=== PATIENT | female | born 1940 | race Hispanic/Latino ===

== ENCOUNTER → 2016-08-05 | Outpatient (CLI) | payer OTHER | END | disposition home or self-care (01) | LOC: YCFC.O 14:40 | PROVIDERS: ATTEND Nurse Practitioner Family | DX: I10 Essential (primary) hypertension (principal); E11.9 Type 2 diabetes mellitus without complications; E78.2 Mixed hyperlipidemia ==

== ENCOUNTER 2016-09-10 16:56 | Emergency (ER) | payer MEDICARE, OTHER ==
--- NOTE | 2016-09-10 18:39 | RAD ---
EXAM: Elbow,Left 3 Views CLINICAL INDICATION: 76-year-old female with elbow pain status post fall. TECHNIQUE: Two views of the LEFT elbow were obtained in AP, and lateral projections. COMPARISON: None. FINDINGS: There is no fracture or dislocation. The joint spaces are preserved. No soft tissue abnormalities are seen. No joint effusion. IMPRESSION: No acute radiographic abnormality. Electronically signed by: Maria Luisa lFannery MD 09/10/2016 6:38 PM CDT
--- NOTE | 2016-09-10 18:40 | RAD ---
EXAM: Hip,Left 2 Views CLINICAL INDICATION: 76-year-old female with hip pain status post fall. COMPARISON: None. TECHNIQUE: Two views of the LEFT hip were obtained in AP and oblique projection. FINDINGS: There is no fracture or dislocation. The joint spaces are preserved. No soft tissue abnormalities are seen. Degenerative changes of the lumbar spine with lumbar spine fusion hardware present. The bones are diffusely demineralized limiting assessment for subtle fracture. IMPRESSION: No acute radiographic abnormality. Electronically signed by: Maria Luisa Flannery MD 09/10/2016 6:39 PM CDT
--- NOTE | 2016-09-10 18:42 | RAD ---
EXAM: Shoulder,Left 2 or More Views CLINICAL INDICATION: 76-year-old female with LEFT shoulder pain status post fall. TECHNIQUE: Three views LEFT shoulder were obtained in AP, internal, external rotation and transcapular projections. COMPARISON: None. FINDINGS: Limited two views of the LEFT shoulder reveal no fracture. Dislocation cannot be completely excluded. If there is clinical concern for dislocation, transscapular projection is recommended. The joint spaces are preserved. No soft tissue abnormalities are seen. Degenerative change at the acromioclavicular joint. IMPRESSION: No acute radiographic abnormality. Electronically signed by: Maria Luisa Flannery MD 09/10/2016 6:41 PM CDT
[2016-09-10] MEDS ORDERED: KETOROLAC TROMETHAMINE INJ 30 MG/ML VIAL IM ONE (19:44)
[2016-09-10 19:54] VITALS: TEMP 98.1
--- NOTE | 2016-09-10 20:52 | ED.PDOC ---
History of Present Illness - General Chief Complaint: Trauma Stated Complaint: left shoulder, left knee, and left elbow pain Time Seen by Provider: 09/10/16 18:34 Source: patient, RN notes reviewed, Vital Signs reviewed, family - Daughter Exam Limitations: no limitations - History of Present Illness Initial Comments: Patient is a 76 y/o female who fell at about 1430 today. She was getting up from the bed and her left knee gave out on her. She fell on her left side. She did not hit her head and she had no LOC. Patient has fallen twice because of her knee giving out on her. She has had problems with left knee pain for awhile. Her entire left side is sore from falling, primarily her knee. Timing/Duration: 4-6 hours Severity: moderate Improving Factors: immobilization Worsening Factors: movement Associated Symptoms: denies symptoms Allergies/Adverse Reactions: Allergies Acetaminophen [From Lortab] Allergy (Verified 09/10/16 19:38) Other Hallucinations Gemfibrozil Allergy (Verified 09/10/16 19:38) Unknown Hydrocodone [From Lortab] Allergy (Verified 09/10/16 19:38) Other Hallucinations Metronidazole Allergy (Verified 09/10/16 19:38) Unknown Sulfa Antibiotics Allergy (Verified 09/10/16 19:39) Morphine Adverse Reaction (Verified 09/10/16 19:38) Other Makes her "crazy", upset stomach Niacin Adverse Reaction (Verified 09/10/16 19:38) Other "due to liver issue" Home Medications: Ambulatory Orders Naproxen [Naprosyn] 500 mg PO BID #30 tab 09/10/16 tiZANidine [Zanaflex] 4 mg PO TID PRN #30 tab 09/10/16 Review of Systems - Review of Systems Constitutional: States: no symptoms reported EENTM: States: no symptoms reported Respiratory: States: no symptoms reported Cardiology: States: no symptoms reported Gastrointestinal/Abdominal: States: constipation, diarrhea Genitourinary: States: no symptoms reported Musculoskeletal: States: back pain, joint pain, joint swelling, muscle pain, neck pain Skin: States: no symptoms reported Neurological: States: tingling - In her toes when they get cold. Endocrine: States: no symptoms reported Hematologic/Lymphatic: States: no symptoms reported Past Medical History (General) - Patient Medical History Hx Stroke: No Hx Congestive Heart Failure: No Hx Hypertension: Yes Hx Diabetes: Yes - Neuropathy Hx Gastroesophageal Reflux: Yes - Vaccination History Hx Influenza Vaccination: Yes - 2016 Hx Pneumococcal Vaccination: No - Social History Hx Tobacco Use: No Family Medical History - Family History Mother Family History: No Known Living Status: Physical Exam - Physical Exam General Appearance: Alert, Obvious distress - Mild Eye Exam: bilateral normal Ears, Nose, Throat: hearing grossly normal, normal ENT inspection Neck: non-tender, full range of motion, supple Extremity: normal range of motion, other - Left shoulder, knee and hip joint pain with palpation. No laxity in knee. Neurologic: alert, normal mood/affect, oriented x 3 Skin Exam: normal color Progress - Progress Progress: 09/10/16 21:44 Patient did well and had good pain relief with Toradol and Norflex. 09/10/16 21:45 - Results/Orders Results/Orders: 09/10/16 09/10/16 09/10/16 17:30 19:00 20:39 Temperature 98.1 F Pulse Rate [ 88 86 86 Left Radial] Respiratory 18 18 18 Rate Blood Pressure 160/81 154/109 182/95 [Left Arm] O2 Sat by Pulse 97 97 96 Oximetry 09/11/16 20:58 Losartan Potassium [Cozaar] 50 mg PO ONCE ONE 09/10/16 21:44 X-rays of left shoulder, elbow, hip and knee showed no acute process. - EKG/XRAY/CT Xray Comments: See Results Departure - Departure Clinical Impression: Fall at home Qualifiers: Encounter type: initial encounter Qualifier Code: (W19.XXXA) Unspecified fall, initial encounter Left shoulder strain Qualifiers: Encounter type: initial encounter Qualifier Code: (S46.912A) Strain of unspecified muscle, fascia and tendon at shoulder and upper arm level, left arm , initial encounter Strain of left hip Qualifiers: Encounter type: initial encounter Qualifier Code: (S76.012A) Strain of muscle, fascia and tendon of left hip, initial encounter Strain of left knee Qualifiers: Encounter type: initial encounter Qualifier Code: (S86.912A) Strain of unspecified muscle(s) and tendon(s) at lower leg level, left leg, initial encounter Time of Disposition: 21:45 Disposition: Discharge to Home or Self Care Condition: Fair Departure Forms: ED Discharge - Pt. Copy, Patient Portal Self Enrollment Diet: resume usual diet Activity: ambulate only with walker Referrals: Judi Coffey NP [Primary Care Provider] - 1-2 Weeks Prescriptions: Naproxen [Naprosyn] 500 mg PO BID #30 tab tiZANidine [Zanaflex] 4 mg PO TID PRN #30 tab PRN Reason: Muscle Spasms Home Medications: Ambulatory Orders Naproxen [Naprosyn] 500 mg PO BID #30 tab 09/10/16 tiZANidine [Zanaflex] 4 mg PO TID PRN #30 tab 09/10/16 Additional Instructions: Follow up with ED if symptoms worsen or PCP if symptoms continue.
[2016-09-10] MEDS ORDERED: ORPHENADRINE CITRATE 30 MG/ML AMP IM ONE (20:56)
--- NOTE | 2016-09-10 21:26 | RAD ---
EXAM: Knee,Left 2 or More Views CLINICAL INDICATION: 76-year-old female with knee pain status post fall. TECHNIQUE: Three views LEFT knee were obtained in AP, lateral and patellar projections COMPARISON: None. FINDINGS: There is no fracture or dislocation. The joint spaces are preserved. No soft tissue abnormalities are seen. Degenerative changes noted with sharpening of the tibial spines and tricompartmental osteophytes. Faint increased density of the femoral tibial joint space suggesting chondrocalcinosis of uncertain etiology. IMPRESSION: No acute radiographic abnormality. Electronically signed by: Maria Luisa Flannery MD 09/10/2016 9:25 PM CDT
[2016-09-10 22:11] VITALS: BP 153/100; O2SAT 94
[2016-09-11] MEDS ORDERED: LOSARTAN POTASSIUM 25 MG TAB PO ONE (20:58)
== END 2016-09-10 22:00 | disposition home or self-care (01) ==
LOC: ER 16:56
DX: S86.912A Strain of unspecified muscle(s) and tendon(s) at lower leg level, left leg, initial encounter (principal); S46.912A Strain of unspecified muscle, fascia and tendon at shoulder and upper arm level, left arm, initial encounter; S76.012A Strain of muscle, fascia and tendon of left hip, initial encounter; E11.40 Type 2 diabetes mellitus with diabetic neuropathy, unspecified; K21.9 Gastro-esophageal reflux disease without esophagitis; I10 Essential (primary) hypertension; Z88.6 Allergy status to analgesic agent; Z88.2 Allergy status to sulfonamides; Z88.8 Allergy status to other drugs, medicaments and biological substances; W06.XXXA Fall from bed, initial encounter

== ENCOUNTER 2016-09-18 21:30 | Inpatient (IN) | payer OTHER, MEDICARE ==
[2016-09-18] MEDS ORDERED: fentaNYL CITRATE INJ 50 MCG/ML AMP IV ONE (22:17)
--- NOTE | 2016-09-18 22:22 | ED.PDOC ---
History of Present Illness - General Chief Complaint: Problem Stated Complaint: back pain, hematuria Time Seen by Provider: 09/18/16 22:11 Source: patient, RN notes reviewed, Vital Signs reviewed, family Exam Limitations: no limitations - History of Present Illness Initial Comments: Patient noticed blood in her urine starting about 3 pm today that has progressively worsened. She is having abd pain, back pain and chest pain. No nausea, +SOB. She is also having urinary frequency. Timing/Duration: this afternoon Quality: moderate, cramping, dull Onset Location: suprapubic, generalized flank Radiation: none Activites at Onset: none Prior abdominal problems: recent trauma - Fell ~2 weeks ago. Sexual intercourse history: not active Improving Factors: nothing Worsening Factors: nothing Associated Symptoms: abdominal pain, lower back pain, urinary frequency Allergies/Adverse Reactions: Allergies Acetaminophen [From Lortab] Allergy (Verified 09/10/16 19:38) Other Hallucinations Gemfibrozil Allergy (Verified 09/10/16 19:38) Unknown Hydrocodone [From Lortab] Allergy (Verified 09/10/16 19:38) Other Hallucinations Metronidazole Allergy (Verified 09/10/16 19:38) Unknown Sulfa Antibiotics Allergy (Verified 09/10/16 19:39) Morphine Adverse Reaction (Verified 09/10/16 19:38) Other Makes her "crazy", upset stomach Niacin Adverse Reaction (Verified 09/10/16 19:38) Other "due to liver issue" Home Medications: Ambulatory Orders Naproxen [Naprosyn] 500 mg PO BID #30 tab 09/10/16 tiZANidine [Zanaflex] 4 mg PO TID PRN #30 tab 09/10/16 Review of Systems - Review of Systems Constitutional: States: no symptoms reported. Denies: chills, fever, malaise EENTM: States: no symptoms reported Respiratory: States: short of breath. Denies: cough, orthopnea, stridor Cardiology: States: chest pain. Denies: edema, palpitations, syncope Gastrointestinal/Abdominal: States: see HPI, abdominal pain Genitourinary: States: frequency, hematuria Musculoskeletal: States: back pain Skin: States: no symptoms reported Neurological: States: no symptoms reported Past Medical History (General) - Patient Medical History Hx Seizures: No Hx Stroke: No Hx Dementia: No Hx Asthma: No Hx of COPD: No Hx Cardiac Disorders: No Hx Congestive Heart Failure: No Hx Pacemaker: No Hx Hypertension: No Hx Thyroid Disease: No Hx Diabetes: No Hx Gastroesophageal Reflux: No Hx Renal Disease: No Hx Cancer: No Hx Hepatitis C: No Surgical History: no surgical history - Vaccination History Hx Tetanus, Diphtheria Vaccination: No Hx Influenza Vaccination: No Hx Pneumococcal Vaccination: No - Social History Hx Tobacco Use: No Hx Alcohol Use: No Hx Substance Use: No Hx Substance Use Treatment: No Hx Depression: No - Female History Patient is a Female of Child Bearing Age (10 -59 yrs old): No Family Medical History - Family History Mother Family History: No Known Living Status: Physical Exam - Physical Exam General Appearance: Alert, Comfortable, No apparent distress, Well Developed, Well Groomed, Well Hydrated, Well Nourished Neck: non-tender, full range of motion, supple, normal inspection Cardiovascular/Respiratory: regular rate, rhythm, no M/R/G, no JVD, normal breath sounds, no respiratory distress, other - Anterior chest wall is tender over L costochondral cartilage Gastrointestinal/Abdominal: normal bowel sounds, guarding, tenderness - generalized Back Exam: no CVA tenderness, no vertebral tenderness Extremity: normal range of motion, non-tender, normal inspection, no pedal edema Neurologic: no motor/sensory deficits, alert, normal mood/affect, oriented x 3 Skin Exam: normal color, warm/dry Comments: Vital Signs - 24 hr 09/18/16 09/18/16 21:30 23:55 Temperature 99.1 F Pulse Rate [ 84 84 left arm] Respiratory 18 18 Rate Blood Pressure 176/82 171/83 [Left Arm] O2 Sat by Pulse 95 95 Oximetry Progress - Progress Progress: 09/19/16 00:34 Discussed results with patient and family. Most likely is a severe UTI causing her gross hematuria. She lives alone and is having a hard time getting up and out of bed. Will discuss admission for IV antibiotics with Hospitalist. - Results/Orders Results/Orders: Laboratory Tests 09/18/16 09/18/16 09/18/16 22:00 22:04 22:13 WBC 9.5 RBC 4.53 Hgb 13.8 Hct 40.8 MCV 90.1 MCH 30.5 MCHC 33.9 RDW 13.1 Plt Count 196 MPV 9.4 Absolute Neuts (auto) 6.60 Absolute Lymphs (auto) 1.80 Absolute Monos (auto) 1.00 H Absolute Eos (auto) 0.10 Absolute Basos (auto) 0.00 Neutrophils % 69.5 Lymphocytes % 18.5 L Monocytes % 11.0 H Eosinophils % 0.8 L Basophils % 0.2 Sodium 126 L Potassium 4.4 Chloride 90 L Carbon Dioxide 26 Anion Gap 14.4 BUN 14 Creatinine < 0.40 L BUN/Creatinine Ratio 35.0 H Random Glucose 176 H Serum Osmolality 258.1 L Calcium 9.8 Total Bilirubin 0.9 AST 32 ALT 23 Alkaline Phosphatase 142 H Creatine Kinase 174 H CK-MB (CK-2) 5.0 H* CK-MB (CK-2) % 2.87 Troponin I < 0.02 Serum Total Protein 7.3 Albumin 4.1 Globulin 3.2 Albumin/Globulin Ratio 1.3 Urine Color Red H Urine Appearance Cloudy Urine pH 6.5 Ur Specific [place] 1.010 Urine Protein >=300 H Urine Glucose (UA) 100 H Urine Ketones 15 H Urine Blood Large H Urine Nitrite Positive H Urine Bilirubin Large Urine Urobilinogen 2.0 H Ur Leukocyte Esterase Large H Urine RBC Tntc H Urine WBC Obscured by rbc's H Ur Epithelial Cells Obscured by rbc's Urine Bacteria Obscured by rbc's H - EKG/XRAY/CT EKG: Sinus, RBBB, no ST T wave changes Comments: rate 79 bpm XRAY: Thoracic spine: no acute process - No acute disease CT Ordered: Yes - Abd/Pelvis: fluid/blood in bladder, diverticulosis, w/o normal Departure - Departure Clinical Impression: Urinary tract infection Qualifiers: Urinary tract infection type: acute cystitis Hematuria presence: with hematuria Qualifier Code: (N30.01) Acute cystitis with hematuria Time of Disposition: 00:42 Disposition: Admit Patient Departure Forms: ED Discharge - Pt. Copy, Patient Portal Self Enrollment Home Medications: Ambulatory Orders Naproxen [Naprosyn] 500 mg PO BID #30 tab 09/10/16 tiZANidine [Zanaflex] 4 mg PO TID PRN #30 tab 09/10/16 Decision To Admit - Decistion To Admit Decision to Admit Reason: Admit from ER
[2016-09-18] MEDS ORDERED: SODIUM CHLORIDE 0.9% 1000ML 1,000 ML IVS ONE (22:26)
--- NOTE | 2016-09-19 00:18 | CT ---
EXAM: CT abdomen and pelvis with contrast. INDICATION: Abdominal pain, acute. TECHNIQUE: Contiguous axial CT images of the abdomen and pelvis. Intravenous contrast: Present. Oral contrast: Absent. DLP 766 mGy-cm. COMPARISON: None. FINDINGS: Lower chest: Partially imaged. Lung bases: Unremarkable. Cardiac apex: Unremarkable. Solid abdominal viscera: Liver: Unremarkable. Gallbladder: Cholecystectomy Pancreas: Unremarkable. Spleen: Unremarkable. Adrenal glands: Unremarkable. Right kidney: No hydronephrosis. Left kidney: No hydronephrosis. Urinary bladder: There is a fluid fluid level within the urinary bladder, likely containing blood products Abdominal aorta: Atherosclerotic auscultation without evidence of aneurysm Peritoneal: Free fluid: None. Free air: None. Other: No pathologic sized lymph nodes in the upper abdomen. There is a fat-containing umbilical hernia Bowel: Stomach: Unremarkable. Small bowel: Unremarkable. Appendix: Not uniquely identified, however there are no inflammatory changes within the right lower quadrant Colon: Diverticulosis without evidence of diverticulitis Rectum: Unremarkable. Uterus: Hysterectomy Bones: There are changes of posterior fusion at L3-L4. There is multilevel spondylosis. There are changes of a laminectomy at L4-L5. IMPRESSION: Fluid-fluid level within the urinary bladder, likely containing blood products. Diverticulosis without evidence of diverticulitis. Electronically signed by: Patrice Mccain MD 09/19/2016 12:17 AM CDT
--- NOTE | 2016-09-19 00:19 | RAD ---
EXAM: Two view chest. INDICATION: Chest pain. COMPARISON: Chest x-ray: None. FINDINGS: Cardiac silhouette: Unremarkable. Jeanna: Unremarkable. Lobar consolidation: None. Pleural effusion: None. Pneumothorax: None. Other: None. Bones: There is mild thoracic spondylosis Other: None. IMPRESSION: 1. No acute cardiopulmonary process. Electronically signed by: Patrice Mccain MD 09/19/2016 12:18 AM CDT
--- NOTE | 2016-09-19 00:20 | RAD ---
EXAM: Two view(s) of the thoracic spine. INDICATION: Pain, thoracic spine. COMPARISON: None. FINDINGS: Alignment: Intact. Fracture: No acute compression fracture or subluxation. Paravertebral soft tissues: No large hematoma. IMPRESSION: 1. No acute compression fracture. Electronically signed by: Patrice Mccain MD 09/19/2016 12:19 AM CDT
[2016-09-19] MEDS ORDERED: CIPROFLOXACIN 500 MG TAB (ER DISPENSE) PO ONE (00:29)
[2016-09-19] MEDS ORDERED: CIPROFLOXACIN 500 MG TAB PO ONE (00:29)
[2016-09-19] MEDS ORDERED: levoFLOXacin 500MG IV 500 MG in PREMIX BAG 1 BAG IVPB ONE (00:33)
[2016-09-19] MEDS ORDERED: levoFLOXacin 500MG IV 100 ML IVPB ONE ×2 (00:37→18:42)
--- NOTE | 2016-09-19 01:12 | HP ---
SUPERVISING PHYSICIAN: Benedicto Martinez M.D. CHIEF COMPLAINT: Back pain with hematuria status post same level fall. HISTORY OF PRESENT ILLNESS: Ms. Hayward is a 76 year-old female patient that presented to the Emergency Department after she noticed blood in her urine that started around 1500 on the previous day on 09/18 that had progressively worsened throughout the day. She had been having some abdominal pain, back pain and chest pains, but no nausea or shortness of breath. She was noting that she was having increased urinary frequency. She does have a history of recent fall on 09/10 and was evaluated in the Emergency Department, and found to have no acute injuries. She fell in the last previous day and was again reevaluated and found to have no acute fractures. She did have gross hematuria on exam and the laboratory studies showed that her urine had a large amount of leukocyte esterase, positive nitrites, large amount of blood, greater than 300 protein and 100 glucose with 15 ketones with microscopic showing too numerous to count RBCs, and all other indices obscured by the number of RBCs present. Urine culture was sent to the Laboratory for further analysis. All other laboratory studies completed showed that she had a normal CBC with white count of 9.5, hemoglobin 13.8, hematocrit 40.8. Coagulation studies showed to be within normal limits. Chemistries did show she had a low sodium at 126 with potassium 4.0, BUN 14, creatinine less than 0.4. Liver functions showed normal limits on everything except alkaline phosphatase was elevated at 142. She did have elevated CPK of 174 but troponin was less than 0.02. She was having a significant amount of pain at home. She does live with her niece who reports that she was unable to assist the patient to the bathroom who was having to go frequently secondary to underlying urinary tract infection, therefore given the gross hematuria and pain in her back and lower extremities, the patient is going to be admitted to the Medical/Surgical floor for continued treatment and evaluation for the gross hematuria and underlying urinary tract infection. She was admitted to the Medical/Surgical floor in stable condition. PAST MEDICAL HISTORY: 1. Hypertension. 2. Diabetes mellitus type 2. 3. Hyperlipidemia. 4. Chronic back pain. 5. Gastroesophageal reflux disease. 6. General anxiety disorder without any mention of depression. PAST SURGICAL HISTORY: 1. Stomach surgery for stomach tumor. 2. Cholecystectomy. 3. Appendectomy. 4. Hysterectomy. 5. Multiple lumbar fusion surgeries. HOME MEDICATIONS: 1. Januvia 50 mg daily. 2. Naprosyn 500 mg twice daily. 3. Losartan 50 mg twice daily. 4. Zanaflex 4 mg 3 times a day. 5. Xanax 0.25 mg daily p.r.n. 6. Metformin 500 mg twice daily. 7. Hydrochlorothiazide 12.5 mg twice daily. 8. Omeprazole 20 mg daily. 9. Ciclodan 8% topical at bedtime. 10. Tramadol 50 mg p.r.n. for pain. ALLERGIES: LORTAB, GEMFIBROZIL, METRONIDAZOLE, SULFA ANTIBIOTICS, MORPHINE AND NIACIN. FAMILY HISTORY: The patient is an orphan. She has no records of previous family members. SOCIAL HISTORY: The patient just recently moved from [place] to [place] in April to live with her niece. She is . She is disabled. 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 She had never smoked nor has she ever drank alcohol or used illicit drugs. PRIMARY CARE PROVIDER: [facility]. REVIEW OF SYSTEMS: CONSTITUTIONAL: Denies any chills, fevers or malaise. HEENT : Denies any symptoms. RESPIRATORY: Does have some shortness of breath off and on. Denies any cough, orthopnea or stridors. CARDIOVASCULAR: Notes that she has had some chest wall discomfort but denies any edema, palpitations or syncopal episodes. GASTROINTESTINAL: As noted in the History of Present Illness , abdominal pain with gross hematuria. GENITOURINARY: Increased frequency, polyuria and gross hematuria as noted in the History of Present Illness. MUSCULOSKELETAL: Chronic back pain, pain to her left hip radiating down into her leg after sustaining multiple same level falls within the last week. NEUROLOGIC: Denies any headache, syncopal episodes, dizziness or other neurological deficits. She does walk with a cane. PHYSICAL EXAMINATION: VITAL SIGNS: On admission to the Medical/Surgical floor shows temperature 97.5 , pulse 87, blood pressure 170/95, respirations 22, satting 96% on room air. Admission weight was 72.9 kg. GENERAL: The patient appears well nourished, well hydrated, in some mild distress from pain. HEENT: Tympanic membranes are clear bilaterally. Oropharynx is pink and moist without any lesions. NECK: No jugular venous distention. Non-tender with full range of motion, supple with normal inspection. CHEST: Lungs are clear to auscultation bilaterally without any rhonchi, wheezing or rales. There is some tenderness noted over the anterior chest wall with palpation over the left costochondral cartilage. CARDIOVASCULAR: Heart is regular rate and rhythm without appreciable murmurs, gallops, or rubs. ABDOMEN: Generalized tenderness more so towards the suprapubic area. No rebound tenderness. No guarding. Bowel sounds are positive. BACK: There is no CVA tenderness. No vertebral tenderness. No obvious trauma. EXTREMITIES: There is no edema, clubbing or cyanosis. She does have some discomfort with left leg when lying flat, especially with straight leg lifts which elicit extreme pain into her lower back and hip radiating down into the lateral aspect of her leg down to the calf. PELVIS: Stable on exam with no obvious deformities or bruising or other trauma. INTEGUMENT: Skin is warm and dry, normal color with no obvious lesions or other traumatic injuries. NEUROLOGIC: She is alert and oriented times three. Cranial nerves II-XII are grossly intact. Facial features are symmetrical. Extraocular movements are within normal limits. There is no nystagmus. There are no obvious motor sensory deficits. LABORATORY: White count on admission showed white count 9.5, hemoglobin 13.8, hematocrit 40.8, platelet count 196,000. Differential showed to be within normal limits. Coagulation studies on admission showed normal PT and PTT. Chemistries did show low sodium at 126, potassium was normal at 4.4, chloride low at 90, BUN 14, creatinine less than 0.4, glucose 176, calcium 9.8. Liver functions showed to be within normal limits. Slightly elevated alkaline phosphatase at 142. CPK was elevated at 174, troponin was less than 0.02. Urinalysis showed red and cloudy with dipstick showing greater than 300 protein , 100 glucose, 15 ketones, moderate amount of blood, positive nitrites with large leukocyte esterase. Microscopic showed too numerous to count RBCs obscuring all other indices. MICROBIOLOGY: Urine culture is pending. RADIOLOGY: Abdominal/pelvic CT in the Emergency Department prior to admission showed a fluid level within the urinary bladder likely containing blood products , diverticulosis without any evidence of diverticulitis. There is also note of changes in the posterior fusion of L3 to L4 with multilevel spondylosis, also changes of laminectomy at L4 through L5. Chest x-ray in the Emergency Department prior to admission per radiology interpretation shows no acute cardiopulmonary processes. Thoracic spine x-ray per radiology interpretation showed no acute compression fractures. At time of admission to the Medical/ Surgical floor, pelvis CT and lumbar CT were pending. ASSESSMENT: 1. Gross hematuria with possible underlying urinary tract infection with the patient sustaining a same level fall within the last week. 2. Severe low back pain and hip pain possibly sciatica in nature secondary to possible radiculopathy of the lower lumbar spine with a lumbar spine CT pending at time of admission. 3. Moderate hyponatremia likely secondary to some medication regimen to include Hydrochlorothiazide as well as possibly resulting in the patient having some falls within the last week. 4. Diabetes type 2 on oral therapy. 5. Hypertension. 6. Hyperlipidemia. 7. History of anxiety. 8. Gastroesophageal reflux disease. PLAN: The patient will be admitted to the Medical/Surgical floor for continued treatment and evaluation. Will plan to get a CT of the pelvis and lumbar spine to further rule out any acute fractures as the patient is noted to be osteopenic on previous radiographic studies. Will plan to provide her with some IV therapy to help correct the sodium slowly. Will go ahead and place a two-way Sharp for bladder irrigation and closely monitor the hematuria. Will await urinary cultures to further rule out underlying urinary tract infection and start on Levaquin for antibiotic coverage until final culture results are out. Will provide her with pain control with Fentanyl/Duragesic patch and Fentanyl IV if needed along with muscle relaxants to include her Zanaflex once the medications have been updated in the computer. Will plan to get a social consultation as the patient has had multiple falls in the past and has just recently moved in with a niece to ensure the patient has optimal environment to go home and to be safe once discharged. Will anticipate length of stay to be 2 to 3 days. Until then, will continue to monitor the patient closely and treat appropriately. #[id number] [facility]
[2016-09-19] MEDS ORDERED: ACETAMINOPHEN 325 MG TAB PO PRN (01:17)
[2016-09-19] MEDS ORDERED: SODIUM CHLORIDE 0.9% (FLUSH) 10 ML SYG IV PRN (01:17)
[2016-09-19] MEDS ORDERED: IV SET AND CAP CHANGE INJ INJ SCH (01:30)
[2016-09-19] MEDS ORDERED: DEXTROSE 50% 25 GM/50 ML SYG IV PRN (01:36)
[2016-09-19] MEDS ORDERED: GLUCAGON INJ 1 MG VIAL SUBCU PRN (01:36)
[2016-09-19] MEDS: KCL 20 MEQ/NS 1,000 ML IVS PRN ×2 (03:00→16:22)
[2016-09-19] MEDS ORDERED: IBUPROFEN 400 MG TAB ONE (04:29)
[2016-09-19] MEDS ORDERED: IBUPROFEN 200 MG TAB ONE (04:29)
[2016-09-19] MEDS: IBUPROFEN 200 MG TAB PO PRN (04:57)
[2016-09-19] MEDS: INSULIN LISPRO 100 UNITS/ML PEN SUBCU SCH ×4 (07:58→21:40)
[2016-09-19] MEDS ORDERED: KETOROLAC TROMETHAMINE INJ 30 MG/ML VIAL IV ONE (08:30)
[2016-09-19] MEDS ORDERED: METHOCARBAMOL 750 MG TAB PO ONE (08:32)
[2016-09-19] MEDS ORDERED: fentaNYL CITRATE INJ 50 MCG/ML AMP IV ONE (08:33)
[2016-09-19] MEDS ORDERED: fentaNYL PATCH 25 MCG/HR 1 EA PATCH TD SCH (09:00)
--- NOTE | 2016-09-19 10:23 | CT ---
EXAM DESCRIPTION: Pelvis CLINICAL HISTORY: 76 years Female s/p same level fall 09/10 with uncontrollable pain COMPARISON: None TECHNIQUE: Contiguous axial images of the pelvis were obtained followed by reconstruction images. FINDINGS: Filling defect within the right side of the bladder could represent blood products versus underlying mass. Correlation with a sonogram is recommended for further evaluation. Patient is status post lumbar surgery. There are degenerative changes of the lumbar spine and sacroiliac joints. There is atherosclerosis. There is no discrete acute bony fracture. There is no free fluid in the pelvis. There is no evidence of bowel obstruction. Patient is status post hysterectomy. IMPRESSION: No acute fracture. Filling defect within the right side of the bladder could represent blood products versus possible underlying mass. Correlation with a bladder sonogram is recommended for further evaluation. Electronically signed by: Nawaf Chew MD 09/19/2016 10:22 AM CDT
--- NOTE | 2016-09-19 10:29 | CT ---
EXAM DESCRIPTION: Lumbar Spine CLINICAL HISTORY: s/p same level fall 09/10 with uncontrollable pain. Prior lumbar fusion with hardware. COMPARISON: Radiographs of the hip thoracic spine and chest. CT scans of the abdomen and pelvis soft tissues and CT scan of the pelvic bone. TECHNIQUE: Spiral, axial 2.5 mm scans through the lumbar spine without contrast. Coronal and sagittal 2.0 mm reconstructions. FINDINGS: L5-S1: Prior posterior decompression bilaterally. Mild canal narrowing. Facet joints are partially fused. Partial ossification of the disc space with minimal posterior bulge. Transpedicular screws have been removed bilaterally at L4 and L5. Bilateral gas formation in the SI joints with periarticular sclerosis and marginal spurs. Moderate right foraminal narrowing. No spondylolisthesis. No L5 vertebral body compression deformity. L4-5: Partial ossification in the disc space but no significant posterior bulge. Posterior decompression and partial fusion of the facet joints. Mild narrowing of the bilateral foramina right more than left. Posterior decompression. Mild canal narrowing. No L4 vertebral body compression deformity. No disruption of posterior elements. L3-4: Posterior bilateral transpedicular fusion. Hardware is intact. Normal bone density around the screws. Bilateral L4 screws protruding through the anterior L4 cortex. Possible ossification in the disc space. Moderate narrowing left foramen and mild narrowing right foramen. Facet joints visible. Mild canal narrowing. No vertebral body compression deformity L3. No fracture posterior elements. L2-3: Endplate sclerosis and disc space narrowing in the midline and to the right of midline with gas formation in the disc space associated with sclerosis and disc space narrowing. Grade 1 retrolisthesis. Schmorl's nodes in the endplates. Suspect dense soft tissue density, possibly disc remnant with broad-based 7 mm herniation into the canal impinging the thecal sac. AP canal diameter 5 mm. Bilateral severe foraminal narrowing more right than left. Hypertrophy in the right facet joint. Anterior disc bulge endplate bridging spurs. No acute bony abnormality Posterior elements L2. L1-2: Moderate narrowing of the disc space with anterior and left-sided endplate sclerosis and gas formation. Anterior bulge and endplate ridging. Grade 1 retrolisthesis with posterior 5 mm disc spur complex and AP canal diameter 9 mm. Moderate bilateral foraminal narrowing. No compression deformity of the L1 or L2 vertebral bodies. No acute bony abnormality of the posterior elements L1. T12-L1: Disc space maintained. Posterior disc space narrowing with 4 mm disc osteophyte bulge. Mild canal narrowing. The lateral foramina are patent. Minimal hypertrophy of the bilateral facets. Normal anterior disc bulge. No compression deformity T12 and no acute bony abnormality posterior elements. IMPRESSION: 1. No compression deformity of vertebral bodies at any level. No acute bony abnormalities of the posterior elements at any level. 2. Prior fusion L4-5 and L5-S1 with removal of hardware. Partial ossification of the disc spaces. No spondylolisthesis. Bilateral posterior transpedicular spinal fusion L3-4 with hardware intact and no spondylolisthesis. Partial ossification in the disc space. 3. L2-3 significant spondylolisthesis vacuum formation in the disc more severe to the right of midline. Grade 1 retrolisthesis with moderate canal stenosis. Significant foraminal narrowing more right than left. Correlate for L3 radiculopathy. 4. L1-2 moderate spondylosis in the midline into the left of midline with grade 1 retrolisthesis. Moderate bilateral foraminal narrowing. Electronically signed by: Lai Garner MD 09/19/2016 10:28 AM CDT
[2016-09-19] MEDS ORDERED: FLUCONAZOLE 150 MG TAB PO ONE (11:19)
[2016-09-19] MEDS ORDERED: LOSARTAN POTASSIUM 25 MG TAB ONE (18:42)
[2016-09-19] MEDS ORDERED: tiZANidine 4 MG TAB ONE (19:50)
[2016-09-19] MEDS: ALPRAZolam 0.25 MG TAB PO PRN (19:55)
[2016-09-19] MEDS: NON-FORMULARY MEDICATION 1 EA MIS (Tizanidine Hcl [Zanaflex] 4 MG) PO PRN (19:55)
[2016-09-19] MEDS: NAPROXEN 500 MG TAB PO SCH (20:38)
[2016-09-19] MEDS ORDERED: NON-FORMULARY MEDICATION 1 EA MIS (Losartan Potassium [Losartan Potassium] 50 MG) PO SCH (21:00)
--- NOTE | 2016-09-19 22:38 | PCM.CORE ---
Physician DVT/VTE - Contraindications Medication Contraindication: Medical Contraindication - gross hematuria - Nurse DVT Assessment & Total Each Risk Factor Represents 3 Points: Age over 75 years DVT Assessment Score: 3 - 3-4 High Risk Treatments: Early Ambulation *, Sequential Compression Device
[2016-09-20] MEDS: levoFLOXacin 500MG IV 500 MG in PREMIX BAG 1 BAG IVPB SCH (00:47)
[2016-09-20] MEDS ORDERED: tiZANidine 4 MG TAB ONE (03:33)
[2016-09-20] MEDS: NON-FORMULARY MEDICATION 1 EA MIS (Tizanidine Hcl [Zanaflex] 4 MG) PO PRN (03:34)
[2016-09-20] MEDS: KCL 20 MEQ/NS 1,000 ML IVS PRN ×2 (06:34→20:07)
[2016-09-20] MEDS ORDERED: LOSARTAN POTASSIUM 25 MG TAB ONE (07:37)
[2016-09-20] MEDS: INSULIN LISPRO 100 UNITS/ML PEN SUBCU SCH ×4 (07:41→21:30)
[2016-09-20] MEDS: metFORMIN HCL 500 MG TAB PO SCH ×2 (08:31→17:10)
[2016-09-20] MEDS: SITagliptin 50 MG TAB PO SCH (08:32)
[2016-09-20] MEDS: NAPROXEN 500 MG TAB PO SCH ×2 (08:33→20:30)
[2016-09-20] MEDS: LOSARTAN POTASSIUM 25 MG TAB PO SCH ×2 (08:33→20:30)
[2016-09-20] MEDS: OMEPRAZOLE CAP 20 MG CAP PO SCH (09:45)
[2016-09-20] MEDS: IBUPROFEN 200 MG TAB PO PRN (15:16)
[2016-09-20] MEDS: tiZANidine 4 MG TAB PO PRN (17:10)
--- NOTE | 2016-09-20 19:20 | PN ---
DATE: 09/20/16 SUPERVISING PHYSICIAN: Benedicto Martinez M.D. SUBJECTIVE: The patient is sitting on the edge of the bed eating breakfast this morning. Said she feels a little bit better in regards that she has had some better pain control. She still has a notable amount of hematuria but is having good pain control with Fentanyl and muscle relaxants. OBJECTIVE: VITAL SIGNS: Temperature 96.7, pulse 59, blood pressure 105/70, respirations 18, O2 sat 97% on room air. I's and O's show a positive balance of 392 with 2942 in, 2550 out. She has had 1 bowel movement. GENERAL: The patient appears to be in no distress. She is in much better spirits today. Says her pain is better controlled. CHEST: Lungs are clear to auscultation. HEART: Regular rate and rhythm. ABDOMEN: Obese but soft, non-tender. Positive bowel sounds. EXTREMITIES: No clubbing, cyanosis or edema. NEUROLOGIC: She is alert and oriented times three. LABORATORY: White count is normal at 7.5, hemoglobin 10.8, hematocrit 13.5, platelet count 144,000. Differential shows to be without a left shift. Chemistries show a slightly low sodium at 130 but improved from admission of 126 , BUN 13, creatinine 0.45. Glucoses have been 148 to 183. Liver functions show to be within normal limits. MICROBIOLOGY: Preliminary culture on urine shows gram-negative rods. RADIOLOGY: There are no additional radiographic studies for review. CT of pelvis per radiology interpretation there was no mention of acute fractures. There was mention of filling defect within the right side of the bladder which could represent blood products versus a possible underlying mass. Recommend a sonogram. Lumbar spine CT per radiology interpretation shows no compression deformity of the vertebral bodies at any level. There is note of spondylolisthesis within the lumbar spine. Please refer to that report for full details. There is also mention of significant foraminal narrowing on the left of L3 which could account for the radiculopathy. ASSESSMENT: 1. Gross hematuria with underlying urinary tract infection with culture showing preliminary gram-negative rods with the patient have a history of a same level fall with some mild urinary retention requiring Sharp placement. Per radiology interpretation, the possibility of a neoplasm is not fully ruled out. Recommend followup with a sonogram. 2. Severe low back pain and hip pain possibly sciatica in nature secondary to underlying radiculopathy of the lower lumbar spine with lower lumbar spine CT per radiology interpretation showing no evidence of any compression fractures but significant spondylolisthesis and spondylosis of the lumbar spine. Radiculopathy noted on CT at L3. 3. Moderate hyponatremia showing some improvement after IV therapy felt to be secondary to medication regimen including Hydrochlorothiazide possibly resulting in the patient having some falls within the last week. 4. Diabetes type 2 on oral therapy. 5. Hypertension. 6. Hyperlipidemia. 7. History of anxiety on Xanax. 8. Gastroesophageal reflux disease. PLAN: The patient will continue on current plan of care on the Medical/ Surgical floor. Will plan to get a sonogram of the bladder tomorrow to fully evaluate contents of the bladder for concerns for a possible neoplasm versus hematuria and blood clots with underlying urinary tract infection. Will continue with current medications as she has had good pain control with Fentanyl patch and Zanaflex. She will need a full evaluation from Physical Therapy now that she is able to actually ambulate as she does live with a sitter , her niece, at home but is having multiple falls, therefore Social Service consultation is warranted to ensure the patient is safe at time of discharge once she returns home. Will await final culture results of the urine to further target antibiotic therapy. Will continue with some IV therapy to assist with hyponatremia as well as hold her Maxzide for an additional 24 hours , and reevaluate laboratory studies in the morning to include CBC and BMP. Until discharge, will continue to monitor the patient closely and treat appropriately. Once discharged, the patient will need close clinical followup with [facility] who she is currently seeing as her primary care provider as she has just recently moved to the area from [place]. #[id number] [facility]ITAL[facility]
[2016-09-20] MEDS: ALPRAZolam 0.25 MG TAB PO PRN (20:09)
[2016-09-20] MEDS: GABAPENTIN 100 MG CAP PO SCH (20:30)
[2016-09-21] MEDS ORDERED: levoFLOXacin 500MG IV 100 ML IVPB ONE (00:17)
[2016-09-21] MEDS: levoFLOXacin 500MG IV 500 MG in PREMIX BAG 1 BAG IVPB SCH (00:20)
[2016-09-21] MEDS: tiZANidine 4 MG TAB PO PRN ×2 (05:09→11:36)
[2016-09-21] MEDS: OMEPRAZOLE CAP 20 MG CAP PO SCH (06:17)
[2016-09-21] MEDS: INSULIN LISPRO 100 UNITS/ML PEN SUBCU SCH ×3 (08:07→16:58)
[2016-09-21] MEDS: metFORMIN HCL 500 MG TAB PO SCH ×2 (08:08→16:59)
[2016-09-21] MEDS: LOSARTAN POTASSIUM 25 MG TAB PO SCH (09:09)
[2016-09-21] MEDS: SITagliptin 50 MG TAB PO SCH (09:10)
[2016-09-21] MEDS: GABAPENTIN 100 MG CAP PO SCH ×2 (09:10→14:54)
[2016-09-21] MEDS: NAPROXEN 500 MG TAB PO SCH (09:10)
[2016-09-21] MEDS: IBUPROFEN 200 MG TAB PO PRN (11:36)
--- NOTE | 2016-09-21 12:46 | US ---
Limited sonogram of the bladder. Indication: Hematuria and f/u of CT findings to r/o neoplasm Comparison: CT pelvis September 19, 2016. Findings: Bladder volume 465 mL. Sharp catheter in place. This makes evaluation for possible mass lesion difficult. No discrete abnormality bladder identified. Impression: Previous noted mass lesion within the right lateral bladder is not appreciated by sonogram and could be technique related. Cystoscopy recommended for better evaluation. Electronically signed by: Rishi Yu MD 09/21/2016 12:44 PM CDT
--- NOTE | 2016-09-21 17:32 | DS ---
DISCHARGE DIAGNOSIS: 1. Gross hematuria probably secondary to significant underlying urinary tract infection with Klebsiella yet a distinct filling defect or mass was noted on the right side of the bladder which also may be a contributory factor of the hematuria requiring further urological evaluation. 2. Acute urinary tract infection with Klebsiella pneumoniae with pansensitivity except Ampicillin and treated with a fluoroquinolone, Levaquin, to be continued on the outpatient. 3. Chronic severe low back pain with sciatica probably secondary to radiculopathy of the lumbar spine with CT scan showing evidence of significant degenerative disease processes. 4. Moderate hyponatremia showing improvement. 5. Diabetes mellitus type 2 on oral therapy. 6. Hypertension. 7. Hyperlipidemia. 8. History of anxiety on Xanax. 9. History of gastroesophageal reflux disease. HISTORY OF PRESENT ILLNESS: This 76 year-old female was admitted to the hospital via the Emergency Room because of gross blood noted in her urine. She had had some significant increasing urinary frequency and burning upon urination. She has had some lower abdominal discomfort but especially low back problems with special referral down the left leg. She has been evaluated before in [facility] and her pain seems to be helped somewhat by a muscle relaxant medication. Urinalysis showed evidence of a urinary tract infection. Cultures were obtained and the patient was started on a fluoroquinolone, and special followup of possible etiologies was continued. LABORATORY: White count stayed normal at 6,900 with 62% neutrophils, hemoglobin 10.8. INR of 0.96. Chemistry on admission showed sodium 126 which was up to 136 at discharge while potassium 4.6, BUN 13, creatinine low and glucose 128 fasting. Albumin 3.0. Troponin was zero. Urinalysis showed pyuria , hematuria and bacteriuria with positive nitrites and proteinuria. Culture revealed Klebsiella pneumoniae infection in the urine. X-RAYS: Abdominal/pelvis CT scan showed fluid-filled level within the urinary bladder suggesting blood products and diverticulosis present without diverticulitis. Chest x-ray was performed and showed no acute cardiopulmonary process. Lumbar spine showed advanced degenerative changes with compression and foraminal narrowing bilaterally which could be contributing to a significant amount of her symptoms. Pelvis CT scan was performed and showed a filling defect within the right side of the bladder possibly representing an underlying mass or blood products present. Bladder ultrasound was performed on the day of discharge and no specific bladder mass was identified but it stated that it could have been related to technique and further investigation possibly with cystoscopy suggested. HOSPITAL COURSE: The patient was feeling much improved and in fact had very clear urine at the time of discharge. She will still require further followup and management as indicated. PLAN: The patient was ready to continue with outpatient management. She is followed by [facility], especially Judi Coffey, and it is suggested that she see her within the next week. Dr. Chopra, Urologist, will be here on Wednesday, which is 2 days from the date of discharge, and hopefully an appointment can be made at that time for his examination and opinion as to whether cystoscopy would be of benefit to the patient. Also suggest acquiring an appointment in the orthopedic clinic with Dr. Oh because of the severe pain that the patient presents with, especially on the left side of her lower extremities. Home Health is to be scheduled to continue with helping her at home. She is to drink plenty of fluids and keep her urine thin. Special attention to avoid falling. She may benefit by seeing a back specialist to see if specific assistance can be had with epidural steroid injections, etc. Return if not improving. [id number] [facility]
[2016-09-21 18:34] VITALS: BP 171/84; TEMP 98.3; O2SAT 97
== END 2016-09-21 18:55 | disposition home health service (06) | DRG 690 ==
LOC: ER 21:30 → MS 09-19 01:11 → OBSVTOIN 09-19 01:11
PROVIDERS: ADMIT Nurse Practitioner Family; ATTEND Emergency Medicine
DX: N39.0 Urinary tract infection, site not specified (principal); E87.1 Hypo-osmolality and hyponatremia; R31.0 Gross hematuria; B96.1 Klebsiella pneumoniae [K. pneumoniae] as the cause of diseases classified elsewhere; G89.29 Other chronic pain; T50.2X5A Adverse effect of carbonic-anhydrase inhibitors, benzothiadiazides and other diuretics, initial encounter; Y92.009 Unspecified place in unspecified non-institutional (private) residence as the place of occurrence of the external cause; R29.6 Repeated falls; R33.9 Retention of urine, unspecified; M47.26 Other spondylosis with radiculopathy, lumbar region; E11.9 Type 2 diabetes mellitus without complications; I10 Essential (primary) hypertension; E78.5 Hyperlipidemia, unspecified; M81.0 Age-related osteoporosis without current pathological fracture; K21.9 Gastro-esophageal reflux disease without esophagitis; F41.1 Generalized anxiety disorder; Z98.1 Arthrodesis status; Z79.84 Long term (current) use of oral hypoglycemic drugs; Z79.1 Long term (current) use of non-steroidal anti-inflammatories (NSAID); Z79.899 Other long term (current) drug therapy; Z88.2 Allergy status to sulfonamides; Z88.5 Allergy status to narcotic agent; Z88.8 Allergy status to other drugs, medicaments and biological substances

== ENCOUNTER 2016-12-11 14:59 | Emergency (ER) | payer MEDICARE, OTHER ==
--- NOTE | 2016-12-11 15:39 | RAD ---
EXAM DESCRIPTION: Chest,1 View CLINICAL HISTORY: fever COMPARISON: September 18, 2016 TECHNIQUE: PA/lateral FINDINGS: Cardiomediastinal silhouette and pulmonary vascularity are within normal limits. Thoracic aorta is tortuous. Tiny linear opacification in the region of the left costophrenic angle is likely subsegmental atelectasis. Otherwise, lungs are clear without focal consolidations. Bilateral costophrenic angles are sharp. No pneumothorax. Visualized osseous structures show no destructive lesions. IMPRESSION: 1. No radiographic evidence for acute cardiopulmonary process. 2. Other findings as above. Electronically signed by: Ty Roth MD 12/11/2016 3:38 PM CDT
--- NOTE | 2016-12-11 15:44 | ED.PDOC ---
History of Present Illness - General Chief Complaint: Neuro Symptoms/Deficits Stated Complaint: edema in lower legs Time Seen by Provider: 12/11/16 15:06 Source: patient, EMS Exam Limitations: clinical condition - History of Present Illness Initial Comments: Patient presents by EMS after being found on the toilet with AMS. Patient is a poor historian, possibly due to her clinical condition. She does state that she has had swelling in both ankles. She denies any cardiac history and states specifically that she has never had a heart attack. She reports palpitations today. No other history is available from her. Timing/Duration: unsure Severity: moderate Improving Factors: nothing Worsening Factors: nothing Associated Symptoms: denies symptoms Allergies/Adverse Reactions: Allergies Acetaminophen [From Lortab] Allergy (Verified 09/10/16 19:38) Other Hallucinations Codeine Allergy (Verified 12/11/16 15:53) Gemfibrozil Allergy (Verified 09/10/16 19:38) Unknown Hydrocodone [From Lortab] Allergy (Verified 09/10/16 19:38) Other Hallucinations Metronidazole Allergy (Verified 09/10/16 19:38) Unknown Sulfa Antibiotics Allergy (Verified 09/10/16 19:39) Morphine Adverse Reaction (Verified 09/10/16 19:38) Other Makes her "crazy", upset stomach Niacin Adverse Reaction (Verified 09/10/16 19:38) Other "due to liver issue" Home Medications: Ambulatory Orders Naproxen [Naprosyn] 500 mg PO BID #30 tab 09/10/16 ALPRAZolam [Xanax] 0.25 mg PO DAILY PRN 09/19/16 Hydrochlorothiazide 12.5 mg PO BID 09/19/16 Losartan Potassium 50 mg PO BID 09/19/16 Metformin HCl 500 mg PO BIDFD 09/19/16 SITagliptin [Januvia] 50 mg PO DAILY 09/19/16 Tizanidine HCl [Zanaflex] 4 mg PO TID PRN 09/19/16 Tramadol HCl 50 mg PO Q4H PRN 09/19/16 Omeprazole 20 mg PO DAILY 12/11/16 Review of Systems - Review of Systems Constitutional: States: no symptoms reported EENTM: States: no symptoms reported Respiratory: States: no symptoms reported Cardiology: States: see HPI Gastrointestinal/Abdominal: States: no symptoms reported Genitourinary: States: no symptoms reported Musculoskeletal: States: no symptoms reported Skin: States: no symptoms reported Neurological: States: no symptoms reported Endocrine: States: no symptoms reported Hematologic/Lymphatic: States: no symptoms reported Past Medical History (General) - Patient Medical History Hx Seizures: No Hx Stroke: No Hx Dementia: No Hx Asthma: No Hx of COPD: No Hx Cardiac Disorders: No Hx Congestive Heart Failure: No Hx Pacemaker: No Hx Hypertension: No Hx Thyroid Disease: No Hx Diabetes: Yes Hx Gastroesophageal Reflux: No Hx Renal Disease: No Hx Cancer: No Hx Hepatitis C: No Hx MRSA: No - Vaccination History Hx Tetanus, Diphtheria Vaccination: No Hx Influenza Vaccination: No Hx Pneumococcal Vaccination: No - Social History Hx Tobacco Use: No Hx Alcohol Use: No Hx Substance Use: No Hx Substance Use Treatment: No Hx Depression: No Hx Physical Abuse: No Hx Emotional Abuse: No Family Medical History - Family History Mother Family History: No Known Living Status: Physical Exam - Physical Exam General Appearance: Alert - Alert to name and place Ears, Nose, Throat: normal ENT inspection Neck: non-tender, full range of motion, supple Respiratory: lungs clear Cardiovascular/Chest: normal peripheral pulses, other - tachycardic. 4/6 systolic ejection murmur heard best over the left 4th intercostal space. Gastrointestinal/Abdominal: normal bowel sounds, non tender, soft Back Exam: no CVA tenderness Extremity: other - Bipedal non-pitting edema. 2+. 23 cm in diameter around both ankles. 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 EKG showed sinus tachycardia with possible developing ST elevations in V4-V6 with no reciprocal changes. No LBBB. Troponin was 1.47. We were able to find an old EKG from 3 months ago that showed a more flattened ST baseline in V4-V6 and it was determined that this could be a developing STEMI vs. NSTEMI. UA was positive for UTI and WBC was 16.4. Lactic acid was 4.3. Patient was started on NS fluid boluses and Rocephin 1 gram IV x one. CT head was done to rule out hemorrhage and then heparin 5000 IU bolus x one given followed by 780 IU/hr for the cardiac issues. CTA chest was negative for PE. Patient was transferred to [facility] by EMS ground. Laboratory Tests 12/11/16 12/11/16 12/11/16 15:21 15:32 15:32 WBC RBC Hgb Hct MCV MCH MCHC RDW Plt Count MPV Absolute Neuts (auto) Absolute Lymphs (auto) Absolute Monos (auto) Absolute Eos (auto) Absolute Basos (auto) Neutrophils % Lymphocytes % Monocytes % Eosinophils % Basophils % PT INR PTT (SP) D-Dimer, Quantitative Sodium 133 L Potassium 3.4 L Chloride 97 L Carbon Dioxide 20 L Anion Gap 19.4 H BUN 13 Creatinine 0.92 BUN/Creatinine Ratio 14.1 Random Glucose 390 H Serum Osmolality 282.7 Lactic Acid Calcium 10.0 Total Bilirubin 2.5 H* AST 60 H ALT 29 Alkaline Phosphatase 110 Creatine Kinase 173 H CK-MB (CK-2) 5.2 H* CK-MB (CK-2) % 3.01 Troponin I 1.47 H* B-Natriuretic Peptide Serum Total Protein 8.3 H Albumin 4.6 Globulin 3.7 H Albumin/Globulin Ratio 1.2 TSH Urine Color Yellow Urine Appearance Sl cloudy Urine pH 6.0 Ur Specific C[place] 1.025 Urine Protein >=300 H Urine Glucose (UA) 250 H Urine Ketones 40 H Urine Blood Moderate H Urine Nitrite Negative Urine Bilirubin Small H Urine Urobilinogen 0.2 Ur Leukocyte Esterase Large H Urine RBC 3-5 H Urine WBC 20-30 H Ur Epithelial Cells 1-3 Ur Renal Epithelial Cell 3-5 Urine Bacteria 2+ H 12/11/16 12/11/16 12/11/16 15:32 15:32 15:32 WBC 16.4 H RBC 4.95 Hgb 15.1 Hct 45.3 MCV 91.4 MCH 30.5 MCHC 33.4 RDW 13.4 Plt Count 172 MPV 11.1 H Absolute Neuts (auto) 14.20 H Absolute Lymphs (auto) 0.80 L Absolute Monos (auto) 1.40 H Absolute Eos (auto) 0.00 Absolute Basos (auto) 0.00 Neutrophils % 86.9 H Lymphocytes % 4.7 L Monocytes % 8.3 Eosinophils % 0.0 L Basophils % 0.1 PT 14.4 H INR 1.280 PTT (SP) 35.9 D-Dimer, Quantitative Sodium Potassium Chloride Carbon Dioxide Anion Gap BUN Creatinine BUN/Creatinine Ratio Random Glucose Serum Osmolality Lactic Acid Calcium Total Bilirubin AST ALT Alkaline Phosphatase Creatine Kinase CK-MB (CK-2) CK-MB (CK-2) % Troponin I B-Natriuretic Peptide 621.0 H* Serum Total Protein Albumin Globulin Albumin/Globulin Ratio TSH Urine Color Urine Appearance Urine pH Ur Specific C[place] Urine Protein Urine Glucose (UA) Urine Ketones Urine Blood Urine Nitrite Urine Bilirubin Urine Urobilinogen Ur Leukocyte Esterase Urine RBC Urine WBC Ur Epithelial Cells Ur Renal Epithelial Cell Urine Bacteria 12/11/16 12/11/16 12/11/16 15:32 15:32 15:45 WBC RBC Hgb Hct MCV MCH MCHC RDW Plt Count MPV Absolute Neuts (auto) Absolute Lymphs (auto) Absolute Monos (auto) Absolute Eos (auto) Absolute Basos (auto) Neutrophils % Lymphocytes % Monocytes % Eosinophils % Basophils % PT INR PTT (SP) D-Dimer, Quantitative 6442 H* Sodium Potassium Chloride Carbon Dioxide Anion Gap BUN Creatinine BUN/Creatinine Ratio Random Glucose Serum Osmolality Lactic Acid 4.3 H* Calcium Total Bilirubin AST ALT Alkaline Phosphatase Creatine Kinase CK-MB (CK-2) CK-MB (CK-2) % Troponin I B-Natriuretic Peptide Serum Total Protein Albumin Globulin Albumin/Globulin Ratio TSH 1.44 Urine Color Urine Appearance Urine pH Ur Specific [place] Urine Protein Urine Glucose (UA) Urine Ketones Urine Blood Urine Nitrite Urine Bilirubin Urine Urobilinogen Ur Leukocyte Esterase Urine RBC Urine WBC Ur Epithelial Cells Ur Renal Epithelial Cell Urine Bacteria Departure - Departure Clinical Impression: NSTEMI (non-ST elevation myocardial infarction), Sepsis, UTI (urinary tract infection), Shock due to systemic infection Disposition: Transfer to Hospital Condition: Fair Departure Forms: ED Discharge - Pt. Copy, Patient Portal Self Enrollment Diet: other - NPO Activity: other - as per hospitalist Referrals: Judi Coffey NP [Primary Care Provider] - 1-2 Weeks Home Medications: Ambulatory Orders Naproxen [Naprosyn] 500 mg PO BID #30 tab 09/10/16 ALPRAZolam [Xanax] 0.25 mg PO DAILY PRN 09/19/16 Hydrochlorothiazide 12.5 mg PO BID 09/19/16 Losartan Potassium 50 mg PO BID 09/19/16 Metformin HCl 500 mg PO BIDFD 09/19/16 SITagliptin [Januvia] 50 mg PO DAILY 09/19/16 Tizanidine HCl [Zanaflex] 4 mg PO TID PRN 09/19/16 Tramadol HCl 50 mg PO Q4H PRN 09/19/16 Omeprazole 20 mg PO DAILY 12/11/16
[2016-12-11] MEDS ORDERED: cefTRIAXone SODIUM 1 GM in SODIUM CHL 0.9% 50ML MIN-BAG+ 50 ML IVPB ONE (16:00)
[2016-12-11] MEDS ORDERED: SODIUM CHLORIDE 0.9% 1000ML 1,000 ML IVS ONE ×2 (16:00→18:03)
[2016-12-11] MEDS ORDERED: SODIUM CHL 0.9% 50ML MIN-BAG+ 50 ML IVPB ONE (16:03)
[2016-12-11] MEDS ORDERED: cefTRIAXone SODIUM 1 GM VIAL ONE (16:03)
[2016-12-11 17:17] VITALS: O2SAT 95
--- NOTE | 2016-12-11 17:18 | CT ---
PROCEDURE: Head CLINICAL HISTORY: 76 years Female altered mental status COMPARISON: None. TECHNIQUE: Contiguous axial images obtained through the brain without IV contrast. This exam was performed according to our department optimization program which includes automated exposure control, adjustment of the mA and/or kv according to patient size and/or use of iterative reconstruction technique. FINDINGS: The ventricles and sulci are prominent consistent with atrophic changes. No mass lesions. Focal area of lower attenuation in the anterior limb of the right internal capsule. This is indeterminate and could reflect microvascular ischemic change. An area of developing/subacute infarct is not excluded, but thought less likely. No acute hemorrhage. Atherosclerotic calcifications. No fluid or significant mucosal thickening in the visualized paranasal sinuses. No depressed calvarial fractures. IMPRESSION: Area of diminished attenuation in the anterior limb of the right internal capsule which is slightly asymmetric as to the contralateral side. Suspect that these areas represent chronic microvascular ischemic change. Subacute areas of infarct not entirely excluded. Patient's physician Dr. Guaman was called and notified of the findings at 5:16 PM No evidence of acute intracranial hemorrhage Electronically signed by: Gavi Capellan 12/11/2016 5:17 PM CDT
[2016-12-11] MEDS ORDERED: HEPARIN SODIUM (PORCINE) 5,000 U/ML VIAL IV ONE (17:39)
[2016-12-11] MEDS ORDERED: HEPARIN PREMIX 500 ML ONE (17:43)
[2016-12-11] MEDS ORDERED: HEPARIN PREMIX 25,000 UNITS in PREMIX BAG 1 BAG IVS SCH (17:45)
--- NOTE | 2016-12-11 17:45 | CT ---
PROCEDURE: CTA Chest CLINICAL HISTORY: 76 years Female tachycardia, elevated d-dimer COMPARISON: None. TECHNIQUE: Contiguous axial images were obtained through the chest during the infusion of IV contrast. Reformatted images obtained. MIP reformatted images obtained. This exam was performed according to our department optimization program which includes automated exposure control, adjustment of the mA and/or kv according to patient size and/or use of iterative reconstruction technique. FINDINGS: There is mild elevation of the right hemidiaphragm. Motion artifact limits evaluation. The main pulmonary arteries and proximal branches appear unremarkable without focal filling defect to suggest pulmonary embolus. Distal subsegmental branches are suboptimally evaluated secondary to patient motion. No significant mediastinal or hilar adenopathy. Small hiatal hernia. No pericardial or pleural effusion. Scattered areas of atherosclerotic plaquing in the aorta. No evidence of dissection. Small amount of dependent atelectasis IMPRESSION:No evidence of pulmonary embolus Small amount of dependent atelectasis Small hiatal hernia Electronically signed by: Gavi Capellan 12/11/2016 5:43 PM CDT
[2016-12-11 18:14] VITALS: BP 110/65; TEMP 98.1
== END 2016-12-11 18:14 | disposition short-term general hospital (02) ==
LOC: ER 14:59
DX: I21.4 Non-ST elevation (NSTEMI) myocardial infarction (principal); A41.9 Sepsis, unspecified organism; N39.0 Urinary tract infection, site not specified; R65.21 Severe sepsis with septic shock; E11.9 Type 2 diabetes mellitus without complications; Z88.2 Allergy status to sulfonamides; Z88.6 Allergy status to analgesic agent; Z79.899 Other long term (current) drug therapy
CPT/HCPCS: 36415; 70450; 71010; 71275; 80053; 81001; 82550; 82553; 83605; 83880; 84443; 84484; 85025; 85379; 85610; 85730; 87040; 87086; 93005; J0696; J1644; J7030; J7050

== ENCOUNTER 2016-12-21 17:04 | Inpatient (IN) | payer OTHER ==
[2016-12-21] MEDS ORDERED: MAGNESIUM HYDROXIDE 30 ML UD PO PRN (18:18)
[2016-12-21] MEDS ORDERED: DEXTROSE 50% 25 GM/50 ML SYG IV PRN (18:18)
[2016-12-21] MEDS ORDERED: SODIUM PHOS/BIPHOS ENEMA ADULT 133 ML BTTL PR PRN (18:18)
[2016-12-21] MEDS ORDERED: GLUCAGON INJ 1 MG VIAL SUBCU PRN (18:18)
[2016-12-21] MEDS ORDERED: ACETAMINOPHEN 500 MG TAB PO PRN (18:18)
[2016-12-21] MEDS ORDERED: ALPRAZolam 0.25 MG TAB PO PRN (18:20)
--- NOTE | 2016-12-21 19:14 | PCM.CORE ---
Physician DVT/VTE - Nurse DVT Assessment & Total Each Risk Factor Represents 3 Points: Age over 75 years, Medical PT with Hx of LA, CHF, Severe infection/sepsis Each Risk Factor is 1 Point: Obesity (BMI >25) DVT Assessment Score: 7 - 5 or more Very High Risk Treatments: Early Ambulation *, Sequential Compression Device Pharmacological: Enoxaparin 40mg SQ Daily
[2016-12-21] MEDS ORDERED: LOSARTAN POTASSIUM 25 MG TAB ONE (19:39)
--- NOTE | 2016-12-21 20:34 | HP ---
SUPERVISING PHYSICIAN: Benedicto Martinez M.D. CHIEF COMPLAINT: Strengthening and rehabilitation. HISTORY OF PRESENT ILLNESS: Ms. Hayward is a 76 year-old female patient with a past history of diabetes that was transferred to [facility] on 12/11/16 from [facility] Emergency Department. The patient on date of transfer was found by her daughter to be confused. She was in the bathroom and her daughter went to check on her, and the patient was not like herself. In the E. R. at [place], her troponin was found to be elevated at which time she was transferred to [facility] for a higher level of care. At [facility], she was found to have a urinary tract infection with a sepsis syndrome which was treated with 7 days of Cefepime. She was also found to have an elevated troponin that maxed out to 7.0 and after going to the Cardiac Catheterization Lab, she was diagnosed with a non-ST segment elevation myocardial infarction likely contributing to spasms or microvascular disease, but no significant coronary artery stenosis. She was started on aspirin, Lipitor, Losartan and Coreg. She had significant clinical improvement after treatment with Cefepime for a total of 7 days as well as initiation of physical therapy, however the patient continues to show significant deconditioning and requires continued physical therapy as she is not safe to continue at home with outpatient treatment plan at this point. [facility] requested the patient be transferred at time of discharge and admitted to Swing Bed at [facility] for ongoing physical therapy and reconditioning. The patient was admitted to Swing Bed in stable condition. PAST MEDICAL HISTORY: 1. Recent non-ST segment elevation myocardial infarction secondary to spasms and microvascular disease. 2. Recent urinary tract infection with sepsis syndrome and treated with 7 days of Cefepime with cultures showing no growth. 3. Multiple co-morbidities to include diabetes mellitus type 2. 4. Hypertension. 5. Chronic lower back pain. 6. Normocytic anemia likely due to chronic illness. 7. Gastroesophageal reflux disease. 8. Generalized anxiety disorder without any mention of depression on Xanax. PAST SURGICAL HISTORY: 1. Stomach surgery for stomach tumor. 2. Cholecystectomy. 3. Appendectomy. 4. Hysterectomy. 5. Multiple lumbar fusion surgeries. 6. Recent coronary angiography at [facility]. HOME MEDICATIONS: 1. NovoLog sliding scale a.c. and h.s. 2. Carvedilol 2.125 mg b.i.d. 3. Lipitor 20 mg at bedtime. 4. Aspirin 81 mg daily. 5. Amlodipine 2.5 mg daily. 6. Tramadol 50 mg every 4 hours as needed for pain. 7. Januvia 50 mg daily. 8. Omeprazole 20 mg daily. 9. Metformin 500 mg twice daily. 10. Losartan 50 mg twice daily. 11. Xanax 0.25 mg daily as needed for anxiety. ALLERGIES: ACETAMINOPHEN, CODEINE, GEMFIBROZIL, HYDROCODONE, MORPHINE, SULFA ANTIBIOTICS AND NIACIN. FAMILY HISTORY: The patient is an orphan. She has no medical records of previous family members. SOCIAL HISTORY: The patient just recently moved from [place] to [place] this past April to live with her niece. She is and disabled. 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 She has never smoked nor has she ever drank alcohol or used illicit drugs. PRIMARY CARE PROVIDER: [facility]. REVIEW OF SYSTEMS: Denies any fevers, chills or malaise. HEENT: Denies any headaches, visual disturbances, nasal congestion or sore throat. RESPIRATORY: Denies any shortness of breath, cough or orthopnea. CARDIOVASCULAR: Has a history as noted on the History of Present Illness of chest wall discomfort and chest pain. On admission, currently has no palpitations or any syncopal episodes, or any exertional dyspnea. GASTROINTESTINAL: Denies any abdominal pains, constipation or diarrhea. GENITOURINARY: Denies any hematuria. Notes that she has had previous increased frequency, polyuria with a diagnosis of diabetes and a recent urinary tract infection being treated with Cefepime at [facility]. MUSCULOSKELETAL: Chronic back pain and pain in her left hip which radiates down to the leg after sustaining multiple level falls in the last several months with significant deconditioning secondary to extended hospitalization. NEUROLOGIC: Denies any headaches, syncopal episodes, dizziness or other neurologic deficits. She does walk with a cane or a walker. PHYSICAL EXAMINATION: VITAL SIGNS: On admission to [facility] Bed, temperature 98.1, pulse 76, blood pressure 162/94, respirations 20, satting 98% on room air. GENERAL: The patient appears well nourished and well hydrated, and appears to be without any acute distress, comfortable and alert. HEENT: Tympanic membranes are clear bilaterally. Oropharynx is pink and moist without any lesions. NECK: Non-tender with full range of motion. Supple with normal inspection with no jugular venous distention noted. CHEST: Lungs are clear to auscultation bilaterally without any rhonchi, wheezing or rales. CARDIOVASCULAR: Heart is regular rate and rhythm with a notable systolic murmur but no gallops or rubs. ABDOMEN: Obese but soft, non-tender. Positive bowel sounds. EXTREMITIES: There is no edema, clubbing or cyanosis. NEUROLOGIC: She is alert and oriented times three. Cranial nerves II-XII are grossly intact. Facial features are symmetrical. Extraocular movements are within normal limits. There was no nystagmus noted. There was no obvious motor or sensory deficits. LABORATORY: CBC shows white count is normal at 6.6, hemoglobin 12.1, hematocrit 36.5, platelet count 170,000. Differential shows to be within normal limits. Chemistries show normal electrolytes with potassium 4.4, BUN 16 , creatinine 0.54, glucose 213. Liver function showed to be within normal limits. Calcium 10.1. Urinalysis was pending. RADIOLOGY: Chest x-ray is pending. ASSESSMENT: 1. Recent non-ST segment elevation myocardial infarction with troponins returning to baseline prior to discharge from [facility] felt to be secondary to coronary spasms and microvascular disease with no significant findings on coronary angiography. The patient was started on aspirin, Lipitor, Losartan and a beta ольга. 2. Past history of urinary tract infection with sepsis syndrome with the urine culture showing no growth and the patient being treated with 7 days of Cefepime showing to be stable. 3. Significant weakness and deconditioning secondary to previous extended hospitalization stay and recent non-ST segment elevation myocardial infarction requiring ongoing physical therapy and Swing Bed admission for physical therapy and reconditioning. 4. Diabetes mellitus type 2 on oral therapy. 5. Hypertension. 6. Hyperlipidemia. 7. History of anxiety. 8. Gastroesophageal reflux disease. PLAN: The patient will be admitted to Swing Bed for ongoing rehabilitation and physical therapy for reconditioning as the patient is significantly deconditioned secondary to extended hospitalization and recent Non-ST segment elevation myocardial infarction. Will get a Physical Therapy and Recreational consultation to assist with physical therapy efforts. Will continue to follow the patient medically through her rehabilitation efforts in Swing Bed. Will restart her home medications once updated and verified in the computer. Will start her on DVT prophylaxis as per protocol. Will start her on insulin sliding scale as per protocol. Will anticipate length of stay to be anywhere from 3 to 7 days. Until discharge will continue to monitor the patient closely and treat appropriately. Once discharged, she will need close followup with her primary care provider at [facility] as well as Cardiology as instructed prior to discharge from [facility]. #[id number] MTDD
[2016-12-21] MEDS: ENOXAPARIN SODIUM 40 MG/0.4 ML SYG SUBCU SCH (20:44)
[2016-12-21] MEDS: ATORVASTATIN 20 MG TAB PO SCH (20:45)
[2016-12-21] MEDS: CARVEDILOL 3.125 MG TAB PO SCH (20:45)
[2016-12-21] MEDS ORDERED: INSULIN ASPART 100 UNIT SC SCH (21:00)
[2016-12-21] MEDS ORDERED: NON-FORMULARY MEDICATION 1 EA MIS (Losartan Potassium [Losartan Potassium] 50 MG) PO SCH (21:00)
[2016-12-21] MEDS: INSULIN LISPRO 100 UNITS/ML PEN SUBCU SCH (21:34)
[2016-12-22] MEDS ORDERED: LOSARTAN POTASSIUM 25 MG TAB ONE (08:12)
[2016-12-22] MEDS ORDERED: OMEPRAZOLE CAP 20 MG CAP ONE (08:12)
[2016-12-22] MEDS ORDERED: SITagliptin 50 MG TAB PO ONE (08:12)
[2016-12-22] MEDS ORDERED: amLODIPine BESYLATE 5 MG TAB ONE (08:13)
[2016-12-22] MEDS: INSULIN LISPRO 100 UNITS/ML PEN SUBCU SCH ×4 (08:41→20:59)
[2016-12-22] MEDS: amLODIPine BESYLATE 5 MG TAB PO SCH (08:42)
[2016-12-22] MEDS: LOSARTAN POTASSIUM 25 MG TAB PO SCH ×2 (08:42→21:25)
[2016-12-22] MEDS: metFORMIN HCL 500 MG TAB PO SCH ×2 (08:42→17:21)
[2016-12-22] MEDS: ASPIRIN (CHEWABLE) 81 MG TAB PO SCH (08:43)
[2016-12-22] MEDS: CARVEDILOL 3.125 MG TAB PO SCH ×2 (08:44→21:25)
[2016-12-22] MEDS: DOCUSATE SODIUM 100 MG CAP PO SCH (08:44)
[2016-12-22] MEDS: OMEPRAZOLE CAP 20 MG CAP PO SCH (08:45)
[2016-12-22] MEDS: SITagliptin 50 MG TAB PO SCH (08:46)
[2016-12-22] MEDS: traMADol HCL 50 MG TAB PO PRN (15:28)
[2016-12-22] MEDS: ATORVASTATIN 20 MG TAB PO SCH (21:25)
[2016-12-22] MEDS: ENOXAPARIN SODIUM 40 MG/0.4 ML SYG SUBCU SCH (21:25)
[2016-12-23] MEDS: OMEPRAZOLE CAP 20 MG CAP PO SCH (07:42)
[2016-12-23] MEDS: INSULIN LISPRO 100 UNITS/ML PEN SUBCU SCH ×4 (07:59→20:53)
[2016-12-23] MEDS: metFORMIN HCL 500 MG TAB PO SCH ×2 (07:59→16:43)
[2016-12-23] MEDS: LOSARTAN POTASSIUM 25 MG TAB PO SCH ×2 (09:48→20:04)
[2016-12-23] MEDS: ASPIRIN (CHEWABLE) 81 MG TAB PO SCH (09:48)
[2016-12-23] MEDS: amLODIPine BESYLATE 5 MG TAB PO SCH (09:48)
[2016-12-23] MEDS: SITagliptin 50 MG TAB PO SCH (09:48)
[2016-12-23] MEDS: DOCUSATE SODIUM 100 MG CAP PO SCH (09:48)
[2016-12-23] MEDS: CARVEDILOL 3.125 MG TAB PO SCH ×2 (10:00→20:04)
[2016-12-23] MEDS: traMADol HCL 50 MG TAB PO PRN ×2 (13:53→20:15)
[2016-12-23] MEDS: ENOXAPARIN SODIUM 40 MG/0.4 ML SYG SUBCU SCH (20:04)
[2016-12-23] MEDS: ATORVASTATIN 20 MG TAB PO SCH (20:04)
[2016-12-24] MEDS: OMEPRAZOLE CAP 20 MG CAP PO SCH (05:51)
[2016-12-24] MEDS: INSULIN LISPRO 100 UNITS/ML PEN SUBCU SCH ×4 (07:00→21:34)
[2016-12-24] MEDS: metFORMIN HCL 500 MG TAB PO SCH ×2 (08:03→17:26)
[2016-12-24] MEDS: DOCUSATE SODIUM 100 MG CAP PO SCH (09:17)
[2016-12-24] MEDS: amLODIPine BESYLATE 5 MG TAB PO SCH (09:17)
[2016-12-24] MEDS: SITagliptin 50 MG TAB PO SCH (09:17)
[2016-12-24] MEDS: LOSARTAN POTASSIUM 25 MG TAB PO SCH ×2 (09:18→21:02)
[2016-12-24] MEDS: ASPIRIN (CHEWABLE) 81 MG TAB PO SCH (09:18)
[2016-12-24] MEDS: CARVEDILOL 3.125 MG TAB PO SCH ×2 (09:20→21:02)
--- NOTE | 2016-12-24 15:25 | PN ---
DATE: 12/24/16 SUBJECTIVE: The patient sitting up on the side of the bed with her therapist present. She is actively working on self-care by walking to the bathroom and back. She is requiring some assistance at the present time, but is showing some slow progress. OBJECTIVE: VITAL SIGNS: Afebrile. LUNGS: Clear. HEART: Regular. ABDOMEN: Soft. She is showing improved strength. We will recheck a urinalysis before she goes home. ASSESSMENT: 1. Recent non-ST segment elevation myocardial infarction, treated at [facility], showing coronary spasm and microvascular disease with the patient on aspirin, Lipitor, losartan and a beta ольга. 2. History of urinary tract infection with sepsis syndrome, treated with cefepime and showing improvement. 3. Significant weakness and deconditioning secondary to the extended hospitalization stay at [facility] and recent myocardial infarction, requiring Swing Bed rehabilitation to get her strong to the point she will be able to safely return home. 4. Diabetes mellitus, type 2, on oral therapy. 5. Hypertension. 6. Hyperlipidemia. 7. History of anxiety. 8. History of gastroesophageal reflux disease. PLAN: We will discuss condition with the physical therapist. Initial study shows the patient may be ready to go home by tomorrow. Reevaluate in the morning. Recheck urinalysis before going home to make sure the significant infection has cleared. Reevaluate and followup in the outpatient department when stable. #[id number] MTDD
[2016-12-24] MEDS: ATORVASTATIN 20 MG TAB PO SCH (21:02)
[2016-12-24] MEDS: ENOXAPARIN SODIUM 40 MG/0.4 ML SYG SUBCU SCH (21:02)
[2016-12-25] MEDS: traMADol HCL 50 MG TAB PO PRN ×3 (00:28→17:12)
[2016-12-25] MEDS: OMEPRAZOLE CAP 20 MG CAP PO SCH (05:56)
[2016-12-25] MEDS: INSULIN LISPRO 100 UNITS/ML PEN SUBCU SCH ×4 (07:50→21:04)
[2016-12-25] MEDS: metFORMIN HCL 500 MG TAB PO SCH ×2 (08:07→17:14)
[2016-12-25] MEDS: amLODIPine BESYLATE 5 MG TAB PO SCH (09:13)
[2016-12-25] MEDS: CARVEDILOL 3.125 MG TAB PO SCH ×2 (09:14→21:04)
[2016-12-25] MEDS: LOSARTAN POTASSIUM 25 MG TAB PO SCH ×2 (09:14→21:04)
[2016-12-25] MEDS: ASPIRIN (CHEWABLE) 81 MG TAB PO SCH (09:15)
[2016-12-25] MEDS: DOCUSATE SODIUM 100 MG CAP PO SCH (09:15)
[2016-12-25] MEDS: SITagliptin 50 MG TAB PO SCH (09:15)
[2016-12-25] MEDS: ENOXAPARIN SODIUM 40 MG/0.4 ML SYG SUBCU SCH (21:04)
[2016-12-25] MEDS: ATORVASTATIN 20 MG TAB PO SCH (21:04)
--- NOTE | 2016-12-25 21:21 | DS ---
DISCHARGE DIAGNOSIS: 1. Recent acute non-ST segment elevation myocardial infarction treated at [facility] showing coronary spasm and microvascular disease with the patient currently being treated medically with aspirin, Lipitor, Losartan and a Beta ольга. 2. History of a urinary tract infection with sepsis syndrome treated successfully with Cefepime showing clinical and laboratory improvement. 3. Significant weakness and deconditioning secondary to the extended hospitalization stay at [facility] as well as the recent myocardial infarction requiring Swing Bed rehabilitation to get stronger to the point that she will be able to safely return home. 4. Diabetes mellitus type 2 on oral therapy. 5. Hypertension. 6. Hyperlipidemia. 7. History of anxiety. 8. History of gastroesophageal reflux disease. HISTORY OF PRESENT ILLNESS: This 76 year-old female is admitted to Swing Bed rehabilitation from [facility] to allow the therapist to contribute to a strengthening program to assist with allowing the patient to get stronger with improved confidence so that she will be able to continue to help take care of herself at home. The physical therapy program was carried forth for the days of her hospital stay till she reached a certain plateau of improvement that would allow her to safely return home. LABORATORY: Urinalysis on discharge was clean. White count was 6,600, hemoglobin 12.1. Chemistries showed sugars to be 155 fasting on the day of discharge and potassium is 4.4, BUN 16, creatinine 0.54. Liver enzymes are normal. Sodium 138. No cultures obtained during her Swing Bed stay. The patient was treated with Lovenox as a preventative measure for her DVT prophylaxis. X-RAYS: None were taken. HOSPITAL COURSE: The patient was feeling much improved and was more functional and stronger, able to ambulate and carry on a conversation in a more improved fashion after her rehabilitation had been completed. PLAN: The patient was ready for outpatient ongoing management and followup on the day of discharge. It is of note that they have scheduled her to be seen by a neurologist in [place], Dr. Brianna Meehan, on January 01 at 10:45 AM in the [place] office which is located at [address] [place] [address] with office phone number of [phone]. She is to have followup with Judi Coffey at the [facility] in 1 to 2 weeks where assistance can be had to continue followup with the [facility]iology [facility] as needed and her diabetes management to continue. She is to adhere closely to a diabetic diet and is to increase exercise to get stronger. She is to drink plenty of fluids daily, yet avoid edema in her feet. Avoid falling. Return if not improving. #[id number] MTDD
[2016-12-25 21:55] VITALS: BP 134/81; TEMP 97; O2SAT 98
== END 2016-12-25 22:10 | disposition home or self-care (01) | DRG 948 ==
LOC: MS 17:04
PROVIDERS: ADMIT Nurse Practitioner Family; ATTEND Emergency Medicine
DX: R53.1 Weakness (principal); I25.2 Old myocardial infarction; E11.9 Type 2 diabetes mellitus without complications; I10 Essential (primary) hypertension; E78.5 Hyperlipidemia, unspecified; K21.9 Gastro-esophageal reflux disease without esophagitis; G89.29 Other chronic pain; M54.5 Low back pain; D63.8 Anemia in other chronic diseases classified elsewhere; F41.1 Generalized anxiety disorder; R29.6 Repeated falls; M25.552 Pain in left hip; E66.9 Obesity, unspecified; Z88.8 Allergy status to other drugs, medicaments and biological substances; Z79.84 Long term (current) use of oral hypoglycemic drugs; Z79.82 Long term (current) use of aspirin; Z88.2 Allergy status to sulfonamides; Z88.6 Allergy status to analgesic agent; Z88.5 Allergy status to narcotic agent; Z87.440 Personal history of urinary (tract) infections; Z68.30 Body mass index [BMI] 30.0-30.9, adult

== ENCOUNTER → 2017-01-07 | Outpatient (CLI) | payer OTHER | END | disposition home or self-care (01) | LOC: YCFC.O 12:37 | PROVIDERS: ATTEND Nurse Practitioner Family | DX: N39.0 Urinary tract infection, site not specified (principal) ==

== ENCOUNTER → 2017-01-14 | Outpatient (CLI) | payer OTHER | LOC: YCFC.O 10:11 | PROVIDERS: ATTEND Nurse Practitioner Family | DX: E11.9 Type 2 diabetes mellitus without complications (principal) ==

== ENCOUNTER → 2017-03-30 | Outpatient (CLI) | payer OTHER | END | disposition home or self-care (01) | LOC: YCFC.O 08:38 | DX: E11.9 Type 2 diabetes mellitus without complications (principal) ==